=== PATIENT | female | born 1965 | race Caucasian/White ===

== ENCOUNTER → 2018-05-02 10:32 | Outpatient (CLI) | payer OTHER, SELFPAY ==
--- NOTE | 2018-05-02 10:37 | MM_ITS ---
MM Dig screening mamm BI w/CAD ORDERING PHYSICIAN : Kristy Lay PATIENT AGE: 52 years GENDER: [facility]: April 2012, March 2011 prior INDICATION: Routine SCREENING no hormones. No new complaints. Noncontributory family history. Previous needle biopsy right breast. TECHNIQUE: Standard CC and MLO images were obtained. R2 CAD reviewed. FINDINGS: Low-density breast bilaterally generalized fatty replacement no significant change since prior study. RIGHT BREAST: No new areas of concern We again see the round nodular density at the 12:00 right breast. No significant change since previous studies.. This measures 16 mm today and measured similar size and in 2013 this long-term stability supporting benign nature. LEFT BREAST: No new findings of significant concern. IMPRESSION: Stable bilateral mammogram.. Long-standing Stable nodular density right breast no significant change since 2011 Routine annual follow-up suggested BI-RADS Category: 2 Benign Finding(s) RECOMMENDED FOLLOW-UP: 1YR 1 YEAR FOLLOW-UP (A letter has been sent to the patient regarding results of the study.)
== END ==
PROVIDERS: PCP Internal Medicine Adolescent Medicine; Visit Provider Nurse Practitioner Family
DX: Z12.31 Encounter for screening mammogram for malignant neoplasm of breast (principal)
CPT/HCPCS: 77067

== ENCOUNTER → 2018-11-21 07:30 | Outpatient (CLI) | payer OTHER, SELFPAY ==
[2018-11-21 13:57] LABS: Basophils # 0.1 K/mm3 (0-0.2); Basophils % 1.2 % (0.1-2.0); Eosinophils # 0.2 K/mm3 (0.0-0.4); Eosinophils % 3.6 % (0.1-12.0); Hematocrit 42.9 % (37.0-47.0); Hemoglobin 13.5 g/dL (12.2-16.2); Lymphocytes # 1.4 K/mm3 (0.7-4.5); Lymphocytes % 26.4 % (10-50); Mean Corpuscular HGB Conc 31.4 g/dL (31.8-35.4); Mean Corpuscular Hemoglobin 26.7 pg (27.0-31.2); Mean Corpuscular Volume 84.9 fl (81-99); Monocytes # 0.4 K/mm3 (0.1-1.0); Monocytes % 7.5 % (1.7-9.3); Neutrophils # 3.3 K/mm3 (1.8-7.8); Neutrophils % 61.3 % (37.0-80.0); Platelet Count 171 K/mm3 (142-424); Red Blood Count 5.05 M/mm3 (4.20-5.40); Red Cell Distribution Width 15.2 % (11.5-17.5); White Blood Count 5.3 K/mm3 (4.8-10.8)
[2018-11-21 14:17] LABS: Alanine Aminotransferase 32 U/L (12-78); Albumin Level 3.9 gm/dL (3.4-5.0); Albumin/Globulin Ratio 1.2 (1.1-1.8); Alkaline Phosphatase 100 U/L (46-116); Aspartate Amino Transferase 16 U/L (15-37); Bilirubin,Total 0.5 mg/dL (0.2-1.0); Blood Urea Nitrogen 18 mg/dL (7-18); Calcium 9.3 mg/dL (8.5-10.1); Carbon Dioxide 28 mmol/L (21.0-32.0); Chol/HDL Ratio 6.7 (1-3.5); Cholesterol 207 mg/dL (140-200); Estimated Glomerular Filt Rate 76 ml/min (>60); GFR (African American) 92 ML/MIN (>60); Globulin 3.3 gm/dl (1.3-3.2); Glucose 101 mg/dL (74-106); HDL Cholesterol 31 mg/dL (29-89); LDL Cholesterol 100 mg/dL (0-130); Potassium 4.6 mmoL/L (3.5-5.1); Sodium 139 mmol/L (136-145); Thyroid Stimulating Hormone 2.03 uIU/ml (0.358-3.740); Total Protein,Serum 7.2 gm/dL (6.4-8.2); Triglycerides 379 mg/dL (30-200); VLDL Cholesterol 76 mg/dL (0-40)
[2018-11-21 14:31] LABS: Anion Gap 12.6 mEq/L (5-15); Chloride 103 mmol/L (98-107)
[2018-11-23 13:46] LABS: Vitamin D 25 Hydroxy 21.1 ng/mL (30.0-100.0)
== END ==
PROVIDERS: PCP Nurse Practitioner Family; Visit Provider Nurse Practitioner Family
DX: Z00.00 Encounter for general adult medical examination without abnormal findings (principal); I10 Essential (primary) hypertension; E55.9 Vitamin D deficiency, unspecified
CPT/HCPCS: 36415; 80053; 80061; 82652; 84443; 85025

== ENCOUNTER → 2018-11-27 14:12 | Outpatient (CLI) | payer OTHER, SELFPAY ==
--- NOTE | 2018-11-27 14:19 | US_ITS ---
PROCEDURE: US THYROID CLINICAL INDICATION: THYROMEGALY COMPARISON: THY US THYROID from 02/11/2014 FINDINGS: Right lobe: 1.7 x 4.8 x 2.0 centimeters. In the lower pole there is a well-defined smoothly marginated homogeneous hypoechoic nodule measuring 2.2 x 1.0 by 1.9 centimeters. There is some distal acoustic enhancement suggesting uniform cellularity of the nodule. There is no shadowing. Also in the right lobe there is a round anechoic lesion with thin internal septation with smooth gilbert and distal acoustic enhancement along the periphery of the upper portion and measures 7.9 millimeters in greatest diameter. There are some anterior echoes which could be reverberation artifact or small solid component. Left lobe: 2.3 x 5.2 x 3.2 centimetres. The solid isoechoic in [place] lower left thyroid lobe nodule underwent prior biopsy and on today's study measures 3.5 x 1.9 x 2.7 centimeters. There are some internal cystic foci suggesting some necrosis. Isthmus: Isthmus area shows 2 small nodular foci, 1 of which at the midline is probably anechoic measuring 3.3 millimeters and the other could be hypoechoic measuring 4.1 millimeters. Additional findings: The remainder of the thyroid parenchyma appears to be normal. IMPRESSION: There has been some enlargement of the solid lower pole left thyroid lobe nodule which underwent prior biopsy. Correlate with results. There is a new solid lower pole right thyroid lobe nodule as discussed above. TR category 4, moderately suspicious and considering size FNA could be considered. Dictated by: Haroldo Vicente 11/27/2018 14:51 Electronically signed by Haroldo Vicente in [place] 11/27/2018 14:51
== END ==
PROVIDERS: PCP Nurse Practitioner Family; Visit Provider Nurse Practitioner Family
DX: Z00.00 Encounter for general adult medical examination without abnormal findings (principal); E55.9 Vitamin D deficiency, unspecified
CPT/HCPCS: 76536

== ENCOUNTER → 2020-05-20 07:22 | Outpatient (CLI) | payer OTHER, SELFPAY ==
[2020-05-20 14:10] LABS: Chloride 107 mmol/L (98-107); Potassium 4.2 mmoL/L (3.5-5.1); Sodium 141 mmol/L (136-145)
[2020-05-20 14:12] LABS: Alanine Aminotransferase 24 U/L (12-78); Aspartate Amino Transferase 26 U/L (14-36); Blood Urea Nitrogen 17 mg/dl (7-17); Estimated Glomerular Filt Rate 75 ml/min (>60); GFR (African American) 91 ML/MIN (>60)
[2020-05-20 14:13] LABS: Albumin Level 4.5 g/dl (3.5-5.0); Albumin/Globulin Ratio 1.6 (1.1-1.8); Alkaline Phosphatase 100 U/L (38-126); Anion Gap 10.2 mEq/L (5-15); Bilirubin,Total 0.5 mg/dl (0.2-1.3); Calcium 9.4 mg/dl (8.4-10.2); Carbon Dioxide 28 mmol/L (22.0-30.0); Chol/HDL Ratio 6.9 (1-3.5); Cholesterol 215 mg/dl (140-200); Globulin 2.9 g/dL (1.3-3.2); Glucose 102 mg/dl (74-100); HDL Cholesterol 31 mg/dl (40-60); Total Protein,Serum 7.4 g/dl (6.3-8.2)
[2020-05-20 14:14] LABS: Triglycerides 423 mg/dl (30-150)
[2020-05-20 14:24] LABS: Direct LDL Cholesterol 86.75 mg/dL (100-129)
[2020-05-20 14:32] LABS: 25-OH Vitamin D, Total < 12.8 ng/mL (30-100)
[2020-05-20 15:02] LABS: Vitamin B12 364 pg/mL (239-931)
== END ==
PROVIDERS: Visit Provider Nurse Practitioner Family
DX: I10 Essential (primary) hypertension (principal); E55.9 Vitamin D deficiency, unspecified
CPT/HCPCS: 36415; 80053; 80061; 82306; 82607

== ENCOUNTER → 2020-10-22 11:23 | Outpatient (CLI) | payer OTHER, SELFPAY ==
--- NOTE | 2020-10-22 11:28 | XR_ITS ---
PROCEDURE: XR CERVICAL SPINE 5V CLINICAL INDICATION: CERVICALGIA COMPARISON: No exams were available for comparison FINDINGS: Normal Alignment No fracture or dislocation. No lytic or blastic change. No significant degenerative change. The disc spaces are preserved. No evidence of cervical rib. There is some soft tissue calcification noted posterior to the C5 spinous process suggesting incidental nuchal ligament calcification IMPRESSION: Negative cervical spine Dictated by: Inderjit Samuel MD 10/22/2020 13:15 Inderjit Samuel MD in [place] 10/22/2020 13:15
== END ==
PROVIDERS: PCP Internal Medicine Adolescent Medicine; Visit Provider Nurse Practitioner Family
DX: M54.2 Cervicalgia (principal)
CPT/HCPCS: 72050

== ENCOUNTER → 2020-11-03 18:12 | Outpatient (CLI) | payer OTHER, SELFPAY ==
[2020-11-03 19:04] LABS: Chloride 107 mmol/L (98-107)
[2020-11-03 19:05] LABS: Potassium 4.9 mmoL/L (3.5-5.1); Sodium 142 mmol/L (136-145)
[2020-11-03 19:07] LABS: Alanine Aminotransferase 22 U/L (12-78); Albumin/Globulin Ratio 1.3 (1.1-1.8); Alkaline Phosphatase 112 U/L (38-126); Anion Gap 13.9 mEq/L (5-15); Aspartate Amino Transferase 22 U/L (14-36); Bilirubin,Total 0.3 mg/dl (0.2-1.3); Blood Urea Nitrogen 23 mg/dl (7-17); Carbon Dioxide 26 mmol/L (22.0-30.0); Cholesterol 225 mg/dl (140-200); Estimated Glomerular Filt Rate 75 ml/min (>60); GFR (African American) 91 ML/MIN (>60); Globulin 3.1 g/dL (1.3-3.2); Total Protein,Serum 7.1 g/dl (6.3-8.2)
[2020-11-03 19:08] LABS: Calcium 9.3 mg/dl (8.4-10.2); Glucose 108 mg/dl (74-100); HDL Cholesterol 25 mg/dl (40-60)
[2020-11-03 19:30] LABS: Direct LDL Cholesterol 54.15 mg/dL (100-129)
[2020-11-03 19:32] LABS: Triglycerides 806 mg/dl (30-150)
[2020-11-03 20:34] LABS: 25-OH Vitamin D, Total 20.9 ng/mL (30-100)
== END ==
PROVIDERS: Visit Provider Nurse Practitioner Family
DX: I10 Essential (primary) hypertension (principal); E78.2 Mixed hyperlipidemia; E55.9 Vitamin D deficiency, unspecified
CPT/HCPCS: 80053; 80061; 82306

== ENCOUNTER 2023-03-09 13:20 | Outpatient (CLI) | payer OTHER, SELFPAY ==
--- NOTE | 2023-03-09 13:28 | XR_ITS ---
FINAL REPORT CLINICAL HISTORY: Right heel pain COMPARISON: None FINDINGS: RIGHT FOOT: Three views of the right foot were obtained. There is no acute fracture or dislocation. The joint spaces are intact. Small calcaneal spurs are noted. There are calcifications in the region of the distal Achilles tendon. IMPRESSION: No acute bony abnormality. Calcifications in the region of the distal Achilles tendon. Reviewed, Interpreted and Dictated by Tony Perkins III, MD Transcribed by Abby Archuleta Authenticated and [facility]
--- NOTE | 2023-03-09 13:28 | XR_ITS ---
FINAL REPORT CLINICAL HISTORY: Left heel pain COMPARISON: None FINDINGS: LEFT FOOT: Three views of the left foot were obtained. There is no acute fracture or dislocation. The joint spaces are intact. There is no soft tissue abnormality. IMPRESSION: No acute bony abnormality. Reviewed, Interpreted and Dictated by Tony Perkins III, MD Transcribed by Abby Archuleta Authenticated and [facility]
== END 2023-03-09 23:59 ==
PROVIDERS: PCP Internal Medicine Adolescent Medicine; Visit Provider Nurse Practitioner Family
DX: M79.671 Pain in right foot (principal); M79.672 Pain in left foot
CPT/HCPCS: 73630

== ENCOUNTER 2024-07-03 08:23 | Observation (INO) | payer MEDICAID, SELFPAY ==
[2024-07-03] VITALS (25 sets, daily range): BP systolic 90–144; BP diastolic 51–83; PULSE 73–128; RESP 12–26; TEMP 36.1–37.5; O2SAT 93–98; BMI 44.2
--- OUTSIDE RECORDS SUMMARY | 2024-07-03 08:32 | XMS_ITS | Continuity of Care Document ---
Author Organization [facility] Phone Care Team Providers Care Internetworking Technician Name Role Phone MAXWELL BREWER Primary Care MAXWELL BREWER Admitting MAXWELL BREWER Primary Attending MAXWELL BREWER Unavailable RESULTS Patient: MERARY AVILES Date of : 1965 LABORATORY RESULTS Information is not available LABORATORY NARRATIVE RESULTS Information is not available RADIOLOGY RESULTS ORDER 100: HIP LT 2V (LOINC: 56021-1) ORDER DATE: February 28, 2024 4:26:00 PM [facility] PERFORMING LAB: [address] [id number] Final Result Date: February 4:36:[address] [place] [address] Name: HERB REAGAN Exam Date: 02/28/2024 : 1965 Age 58 years Gender: F Physician: MAXWELL BREWER Facility: [facility] Facility HSV: Outpatient Exam: HIP LT 2V LEFT HIP: 2 Views CLINICAL INDICATION: Female, 58 years old. left side pain COMPARISON: None. Findings: There is no fracture or dislocation. Joint space is preserved. Impression: Intact hip Electronically signed by: Mellissa Ornelas MD 02/28/2024 01:36 PM [facility] Dictated By: MELLISSA ORNELAS Transcribed By: Transcribed On: 02/28/2024 11:36 AM Electronically signed by: MELLISSA ORNELAS 02/28/2024 Thank you for referring HERB REAGAN to [facility]. Legally authenticated by JOHNSON MALLOY MD 2024-02-28 11:36:56 ORDER 200: SACROILIAC JOINTS 3V (LOINC: 74704-4) ORDER DATE: February 28, 2024 4:26:00 PM [facility] PERFORMING LAB: [address] [id number] Final Result Date: February 4:37:[address] [place] [address] Name: HERB REAGAN Exam Date: 02/28/2024 : 1965 Age 58 years Gender: F Physician: MAXWELL BREWER Facility: [facility] Facility HSV: Outpatient Exam: SACROILIAC JOINTS 3V EXAMINATION: SACROILIAC JOINTS: 4 views CLINICAL INDICATION: Female, 58 years old. left side pain COMPARISON: None. Findings: There is sclerosis involving the left lower sacroiliac joint without visible osseous erosion. Impression: Sclerosis involving the left lower sacroiliac joint, which may be degenerative in nature. If there is concern for sacroiliitis, MRI may be obtained. Electronically signed by: Mellissa Ornelas MD 02/28/2024 01:35 PM [facility] Dictated By: MELLISSA ORNELAS Transcribed By: Transcribed On: 02/28/2024 11:37 AM Electronically signed by: MELLISSA ORNELAS 02/28/2024 Thank you for referring HERB REAGAN to [facility]. Legally authenticated by JOHNSON MALLOY MD 2024-02-28 11:37:06 PATHOLOGY NARRATIVE RESULTS Information is not available MICROBIOLOGY RESULTS No Micro Labs/Results Exist for Patient BLOOD ADMIN RESULTS Information is not available MEDICATIONS HOME MEDICATIONS Status RXNORM NDC Medication Dose Route Frequency Dates Comments Reported By Updated By Drug Treatment Unknown DISCHARGE MEDICATIONS Status RXNORM NDC Medication Dose Route Frequency Dates Comments Physician Updated By No Discharge Medication Info rmation Available INPATIENT MEDICATIONS Status RXNORM NDC Medication Dose Route Frequency Rat e Quantity Dates Comments Physician Updated By No Inpatient Medication Info rmation Available SOCIAL HISTORY SOCIAL HISTORY SNOMED-CT Social History Element Description Effective Dates Offered Cessation Comment UpdatedBy [id number] Smoking Status Unknown If Ever Smoked SOCIAL HISTORY - Gender Sex: Female SOCIAL HISTORY - Status : status i nformation is not available Intention in Next Year: intention information is not available SOCIAL HISTORY - Sexual Behavior Sexual Orientation Gender Identity SNOMED-CT Description SNO MED -CT Description Activity Level No of Partners Partner Type UpdatedBy Information is not available HEALTH CONCERNS Problems Concern Status Health Concern problem infor mation not available. Smoking Status Status Years Used Consumed packs p er day Health Concern smoking histo ry information not available. Family History Concern Status Health Concern family histor y information not available. ENCOUNTERS ENCOUNTER INFORMATION Reason for Visit M54.42 Admission February 28, 2024 4:19:00 PM [facility] [address] [id number] Discharge February 28, 2024 4:19:00 PM [facility] ISCHARGED TO HOME OR SELF CARE ENCOUNTER DIAGNOSES Notes information is not tadeo ilable. Code System Diagnosis Onset Date Diagnosis information is not available. ABSTRACT DIAGNOSES Code System Diagnosis Updated By M54.42 ICD10 LUMBAGO WITH SCIATICA, LEFT SIDE [id number] on March 01, 2024 9:11:50 AM [facility] M53.3 ICD10 SACROCOCCYGEAL D ISORDERS, NOT ELSEWHERE CLASSIFIED [id number] on March 01, 2024 9:11:50 AM [facility] M54.42 ICD10 LUMBAGO WITH SCIATICA, LEFT SIDE [id number] on March 01, 2024 9:11:50 AM [facility] CARE TEAM Care Internetworking Technician Role MAXWELL BREWER Primary Care MAXWELL BREWER Admitting MAXWELL BREWER Primary Attending MAXWELL BREWER Referring CARE TEAM CARE daycare assistant Role on Team Status Start Date End Date Update d By DANIELLA ARREOLA MD PCP normal February 28, 2024 5:00:00 AM [facility] February 28, 2024 4:19:00 PM [facility] [id number] on February 28, 2024 4:22:24 PM [facility] DANIELLA ARREOLA MD Referring normal February 28, 2024 5:00:00 AM [facility] February 28, 2024 4:19:00 PM [facility] [id number] on February 28, 2024 4:22:24 PM [facility] DANIELLA ARREOLA MD Attending normal February 28, 2024 5:00:00 AM [facility] February 28, 2024 4:19:00 PM [facility] [id number] on February 28, 2024 4:22:24 PM [facility] DANIELLA ARREOLA MD Admitting normal February 28, 2024 5:00:00 AM [facility] February 28, 2024 4:19:00 PM [facility] [id number] on February 28, 2024 4:22:24 PM [facility]
--- NOTE | 2024-07-03 08:36 | ECG_ITS ---
APPROVED REPORT Exam: Resting ECG HR:121 bpm ECG Measurements Heart Rate 121 AXES RI 171 P 50 QRSd 82 QRS 74 QT 306 T -9 QTc 378 Conclusion SINUS TACHYCARDIA NONSPECIFIC T-WAVE ABNORMALITY No acute STEMI Electronically signed by : ORION GOODWIN, 07/03/2024 16:22:08
[2024-07-03 08:53] LABS: Basophils % 0.2 % (0.1-2.0); Hematocrit 41.7 % (37.0-47.0); Immature Granulocytes # 0.12 10^3uL; Immature Granulocytes % 0.6 %; Lymphocytes % 5.2 % (10-50); Mean Corpuscular HGB Conc 33.6 g/dL (31.8-35.4); Mean Corpuscular Hemoglobin 28.8 pg (27.0-31.2); Mean Corpuscular Volume 85.8 fl (81-99); Mean Platelet Volume 12.1 fl (7.4-10.4); Monocytes # 1.6 K/mm3 (0.1-1.0); Monocytes % 8.3 % (1.7-9.3); Neutrophils # 16.1 K/mm3 (1.8-7.8); Neutrophils % 85.7 % (37.0-80.0); Nucleated Red Blood Cells # 0 10^3/uL; Nucleated Red Blood Cells % 0 %; Platelet Count 159 K/mm3 (142-424); Red Blood Count 4.86 M/mm3 (4.20-5.40); Red Cell Distribution Width 14.5 % (11.5-17.5); Red Cell Distribution Width-SD 45.5 fL; White Blood Count 18.8 K/mm3 (4.8-10.8)
[2024-07-03 08:56] LABS: MANUAL DIFFERENTIAL MANUAL DIFFERENTIAL (MANUAL DIFF)
[2024-07-03 09:03] LABS: Alanine Aminotransferase 25 U/L (12-78); Albumin Level 4.7 g/dl (3.5-5.0); Albumin/Globulin Ratio 1.3 (1.1-1.8); Alkaline Phosphatase 147 U/L (38-126); Anion Gap 10.8 mEq/L (5-15); Aspartate Amino Transferase 29 U/L (14-36); Bilirubin,Total 1.6 mg/dl (0.2-1.3); Blood Urea Nitrogen 12 mg/dl (7-17); Calcium 9.8 mg/dl (8.4-10.2); Carbon Dioxide 22 mmol/L (22.0-30.0); Chloride 104 mmol/L (98-107); Creatinine Clearance Estimated 68 mL/min (50-200); Estimated Glomerular Filt Rate 74 ml/min (>60); GFR (African American) 90 ML/MIN (>60); Globulin 3.5 g/dL (1.3-3.2); Glucose 128 mg/dl (74-100); Lipase 68 U/L (23-300); Potassium 3.8 mmoL/L (3.5-5.1); Sodium 133 mmol/L (136-145); Total Protein,Serum 8.2 g/dl (6.3-8.2)
[2024-07-03] MEDS: KETOROLAC 30MG/ML VIAL 15 MG IV (09:03)
[2024-07-03] MEDS: ONDANSETRON 4MG/2ML VIAL 4 MG IV (09:04)
[2024-07-03] MEDS: ACETAMINOPHEN 500MG TAB 1000 MG PO (09:04)
--- NOTE | 2024-07-03 09:07 | HMH.EDGENADL ---
Discharge Plan Disposition Patient Disposition: Admitted Condition: Fair Clinical Impressions Clinical Impression: Sepsis, Acute cholecystitis Discharge ED Provider: Sruthi Garcia General Adult HPI General Chief complaint: Abdominal Pain Stated complaint: Pain in abd. Time Seen by Provider: 07/03/24 08:28 Mode of Arrival: Wheelchair Source of Information: Patient and Relative Description of Symptoms (Recalled from ER Triage Doc. by RN): pt has been having ruq pain and cramping and gas since sunday night with no releif despite otc meds, pt is nauseated from pain and it radiates into right shoulder History of Present Illness HPI narrative: This patient is a 58-year-old female with a history of obesity, hyperlipidemia, hypertension, diabetes presenting to the emergency department for evaluation with concern for generalized abdominal pain that initially started in her right upper quadrant, radiating to her right shoulder. She states that she is also constipated, having difficulty having bowel movements. She states she has cramping and gas and feels like needs to have a bowel movement but is unable to. She also notes nausea with inability to eat or drink, but no vomiting. No fevers, cough, congestion, chest pain, or shortness of breath. She notes that this started Sunday night after eating and has been waxing and waning since then, but she is not been able to eat or drink anything since yesterday. She saw her primary care provider on Sunday was told she might have diverticulitis, but she is not getting better despite [id number] medications and symptomatic management at home. No prior surgical abdominal history. No urinary symptoms. Related Data Home Medications ?Medication ?Instructions ?Recorded ?Confirmed aspirin 81 mg tablet,delayed 81 mg PO DAILY 03/09/23 07/03/24 release (Adult Low Dose Aspirin) atorvastatin 40 mg tablet 40 mg PO DAILY 03/09/23 07/03/24 cholecalciferol (vitamin D3) 25 25 mcg PO DAILY 03/09/23 07/03/24 mcg (1,000 unit) capsule diclofenac sodium 75 mg 75 mg PO BID 03/09/23 07/03/24 tablet,delayed release hydrocodone 7.5 mg-acetaminophen 1 tab PO NEEDED PRN pain 03/09/23 07/03/24 300 mg tablet metoprolol tartrate 25 mg tablet 25 mg PO BID 03/09/23 07/03/24 ubidecarenone-omega 3-vit E 25 1 cap PO DAILY 03/09/23 07/03/24 mg-150 (90-60) mg-200 unit capsule (Co [id number] E-Fish Oil) albuterol sulfate 90 mcg/actuation 2 puff inhalation Q6H PRN 07/03/24 07/03/24 aerosol inhaler (Ventolin HFA) Shortness Of Breath Or Wheezing esomeprazole magnesium 40 mg 40 mg PO DAILY 07/03/24 07/03/24 capsule,delayed release Allergies Allergy/AdvReac Type Severity Reaction Status Date / Time No Known Allergies Allergy Verified 07/03/24 15:16 [facility] Disclaimer: The information contained in this section may have been updated after the patient was seen, as this information can be updated by other users. Medical History (Updated 07/03/24 @ 15:15 by Cass Navarro RN) Sleep apnea Asthma History of gastroesophageal reflux (GERD) Hyperlipidemia Hypertension Surgical History (Updated 07/03/24 @ 15:15 by Cass Navarro RN) History of left knee surgery History of hysterectomy Family History (Updated 07/03/24 @ 15:15 by Cass Navarro RN) Mother Family history of hypertension Mother Family history of TIAs Social History (Updated 07/03/24 @ 15:15 by Cass Navarro RN) Smoking Status: Never smoker alcohol intake: never current occupational status: employed Travel in the last 8 weeks?: None Have you lived/traveled outside [place] in past 30 days?: No Contact w/someone who lives/traveled outside [place] past 30 days?: No Exposure to someone with infectious disease in past 14 days?: No Do you have a fever (greater than 100.4 F or 38 C)?: No Have you tested positive for COVID-19?: No Exposed to someone with COVID-19 in past 14 days?: No Do you have a sore throat?: No Do you have a cough?: No Do you have any weakness?: No Do you have any diarrhea?: No Are you experiencing any unusual bleeding?: No Do you have any muscle aches/pain?: No Do you have any abdominal pain?: Yes Are you experiencing loss of taste or smell?: No ROS Obtained: Yes All systems reviewed & no additional complaints except as documented Physical Exam General General appearance: alert, in no apparent distress and obese Head Head exam: atraumatic and normocephalic Eye Eye exam: Present normal appearance, PERRL and EOMI ENT ENT exam: Present normal exam, normal oropharynx, mucous membranes moist and normal external ear exam Neck Neck exam: Present normal inspection, full ROM and trachea midline; Absent tenderness Chest Chest inspection: Present normal inspection and symmetric chest wall rise; Absent tenderness Respiratory Respiratory exam: Present normal lung sounds bilaterally; Absent respiratory distress, wheezes, stridor or accessory muscle use Cardiovascular Cardiovascular exam: Present normal rhythm and tachycardia Abdominal Exam Abdominal exam: Present soft, distention and tenderness (Generalized); Absent guarding, rebound or rigidity Extremities Exam Extremities exam: Present normal inspection, full ROM and normal capillary refill; Absent tenderness or edema Back Exam Back exam: Present normal inspection and full ROM; Absent tenderness Neurological Exam Neurological exam: Present alert, oriented X3, CN II-XII intact and normal gait; Absent motor sensory deficit Psychiatric Psychiatric exam: Present normal affect and normal mood Skin Skin exam: Present warm and dry Medical Decision Making Medical Records Medical records reviewed: Yes I reviewed the patient's medical records. Screening: Per USPSTF and CDC recommendations, given the prevalence of disease in our region, it is our hospital?s policy to screen for HIV and viral Hepatitis for all patients aged 18 and over and those with ongoing risk factors. Boni Inquiry Pt receiving controlled substance: No Vital Signs: 07/03/24 08:38 07/03/24 08:49 07/03/24 09:00 Temperature 98.9 F Temperature Source Oral Pulse Rate 128 H Pulse Rate [Left Radial] 126 H Respiratory Rate 12 20 18 Blood Pressure 142/83 H 144/64 H Blood Pressure [Right Arm] 142/83 H Blood Pressure Mean [Right Arm] 102 02 Sat by Pulse Oximetry 98 97 Oxygen Delivery Method Room Air 07/03/24 10:00 07/03/24 10:30 07/03/24 11:00 Temperature Temperature Source Pulse Rate 117 H 112 H 111 H Pulse Rate [Left Radial] Respiratory Rate 20 16 26 H Blood Pressure 130/77 107/61 L Blood Pressure [Right Arm] Blood Pressure Mean [Right Arm] 02 Sat by Pulse Oximetry 95 95 95 Oxygen Delivery Method 07/03/24 11:30 07/03/24 12:00 07/03/24 12:11 Temperature 98.2 F Temperature Source Pulse Rate 101 H 100 H 98 H Pulse Rate [Left Radial] Respiratory Rate 23 22 18 Blood Pressure 105/60 L 101/58 L 101/58 L Blood Pressure [Right Arm] Blood Pressure Mean [Right Arm] 02 Sat by Pulse Oximetry 96 97 Oxygen Delivery Method Room Air Lab Data Lab results reviewed: Yes I reviewed the patient's lab results. Lab Results 07/03/24 08:45: WBC 18.8 H, RBC 4.86, Hgb 14.0, Hct 41.7, MCV 85.8, MCH 28.8, MCHC 33.6, RDW 14.5, Plt Count 159, MPV 12.1 H, Neut % (Auto) 85.7 H, Lymph % (Auto) 5.2 L, Coal % (Auto) 8.3, Eos % (Auto) 0.0 L, Baso % (Auto) 0.2, Neut # (Auto) 16.1 H, Lymph # (Auto) 1.0, Coal # (Auto) 1.6 H, Eos # (Auto) 0.0, Baso # (Auto) 0.0, Total Counted 100, Neutrophils % (Manual) 87 H, Lymphocytes % (Manual) 12, Monocytes % (Manual) 1 L, Platelet Estimate Normal, RBC Morphology Normal, D-Dimer 1.09 H, Sodium 133 L, Potassium 3.8, Chloride 104, Carbon Dioxide 22, Anion Gap 10.8, BUN 12, Creatinine 0.80, Estimated Creat Clear 68, Estimated GFR 74, Est GFR ( Amer) 90, Glucose 128 H, Lactate 1.6, Calcium 9.8, Total Bilirubin 1.6 H, AST 29, ALT 25, Alkaline Phosphatase 147 H, Troponin I < 0.01, Total Protein 8.2, Albumin 4.7, Globulin 3.5 H, Albumin/Globulin Ratio 1.3, Lipase 68 07/03/24 10:53: Urine Color Yellow, Urine Appearance Sl cloudy, Urine pH 6.0, Ur Specific [place] 1.020, Urine Protein 2+ A, Urine Glucose (UA) 2+, Urine Ketones 1+, Urine Blood 1+ A, Urine Nitrate Positive A, Urine Bilirubin Negative, Urine Urobilinogen 2.0, Ur Leukocyte Esterase Negative, Urine RBC None, Urine WBC 5-10, Ur Squamous Epith Cells 3-5, Urine Bacteria 3+ 07/03/24 08:45 07/03/24 08:45 Orders (Tests/Meds): ED MEDICATIONS Generic Name Dose Route Start Last Admin Trade Name Freq PRN Reason Stop Dose Admin Acetaminophen 650 mg 07/03/24 15:23 Acetaminophen 325mg Tab PO 08/02/24 15:22 Q4HP PRN Fever or Mild Pain (1-3) Enoxaparin Sodium 40 mg 07/04/24 09:00 Enoxaparin 40mg/0.4ml Syringe SUBCUT 08/03/24 08:59 DAILY IMELDA Lactated Ringer's 1,000 mls @ 100 mls/hr 07/03/24 15:30 Lactated Ringer's 1000 Ml Bag IV 08/02/24 15:29 .Q10H IMELDA Ondansetron HCl 4 mg 07/03/24 15:23 Ondansetron 4mg/2ml Vial IV 08/02/24 15:22 Q8HP PRN Nausea Sodium Chloride 10 ml 07/03/24 15:23 Sodium Chloride 0.9% 10ml Flush Syringe IV 08/02/24 15:22 NEEDED PRN Maintain IV Site Discontinued Medications Generic Name Dose Route Start Last Admin Trade Name Freq PRN Reason Stop Dose Admin Acetaminophen 1,000 mg 07/03/24 08:43 07/03/24 09:04 Acetaminophen 500mg Tab PO 07/03/24 08:44 1,000 mg ONCE ONE Administration Lactated Ringer's 1,640 mls @ 820 mls/hr 07/03/24 08:59 07/03/24 09:08 Lactated Ringer's 1000 Ml Bag 30 ml/kg infuse over 2 hr (1640 ml) 07/03/24 10:58 820 mls/hr IV Administration .Q2H ONE Piperacillin Sod/Tazobactam 50 mls @ 100 mls/hr 07/03/24 10:01 07/03/24 10:17 Sod 3.375 gm/ Sodium Chloride IV 07/03/24 10:30 100 mls/hr ONCE ONE Administration Iopamidol 80 ml 07/03/24 09:40 07/03/24 09:42 Iopamidol-370 (76%);100ml Bottle IV 07/03/24 09:41 80 ml ONCE ONE Administration Ketorolac Tromethamine 15 mg 07/03/24 08:43 07/03/24 09:03 Ketorolac 30mg/Ml Vial IV 07/03/24 08:44 15 mg ONCE ONE Administration Ondansetron HCl 4 mg 07/03/24 08:43 07/03/24 09:04 Ondansetron 4mg/2ml Vial IV 07/03/24 08:44 4 mg ONCE ONE Administration Sodium Chloride 10 ml 07/03/24 09:40 07/03/24 09:42 Sodium Chloride 0.9% 10ml Syr (Rad Only) IV 07/03/24 09:41 10 ml ONCE ONE Administration ORDERS Category Date Time Status CT abdomen pelvis w con Stat Cat Scan 07/03/24 09:18 Completed CTA Chest [CT angio chest PE protocol] Stat Cat Scan 07/03/24 09:18 Completed Consult to General Surgery [CONS] Stat Cons 07/03/24 10:03 Ordered Complete Blood Count Auto Diff Stat Lab 07/03/24 08:45 Completed Comprehensive Metabolic Panel Stat Lab 07/03/24 08:45 Completed D-Dimer Stat Lab 07/03/24 08:45 Completed Lactic Acid Stat Lab 07/03/24 08:45 Completed Lipase Stat Lab 07/03/24 08:45 Completed Trop I [Troponin I] Stat Lab 07/03/24 08:45 Completed UA [Urinalysis and Microscopic] Stat Lab 07/03/24 10:53 Completed Blood Culture Stat Micro 07/03/24 09:33 Received Urine Culture Stat Micro 07/03/24 10:58 Received ECG Data Tracing #1: I reviewed this ECG and interpreted as documented below: Sinus tachycardia with a ventricular to [address] changes concerning for STEMI. Normal intervals ECG initial impression date: 07/03/24 ECG initial impression time: 08:38 Medical Decision Narrative: In summary, this patient is a 58-year-old female presenting to the Emergency Department for evaluation of generalized abdominal pain that initiated in the right upper quadrant, radiating to her shoulder. She also has constipation and nausea. Differential diagnoses considered include but are not limited to constipation, bowel obstruction, fecal impaction, cholecystitis, cholangitis, sepsis, pyelonephritis, ureterolithiasis, pneumonia, PE, ACS. Ruling out the most morbid conditions drove assessment. It should be noted patient's history includes obesity, hypertension, hyperlipidemia, diabetes which may or may not be at goal therapy. This complicates all aspects of care by increasing patient's risk for morbidity. On exam, the patient is sitting upright in no acute distress. She is tachycardic but otherwise vitals are reassuring. Abdominal exam demonstrates generalized tenderness with no rebound, guarding, rigidity. Cardiopulmonary exam is reassuring. Given that she has essentially upper abdominal/lower chest pain with tachycardia, cannot exclude PE as a diagnosis that I feel is unlikely. Given this, D-dimer was ordered. Workup included CBC, CMP, lipase, D-dimer, lactic acid, troponin, EKG. D-dimer was found to be elevated. CBC demonstrated leukocytosis with neutrophilic predominance. She also has mild hyponatremia, mild hyperbilirubinemia. Otherwise, liver enzymes and lipase are reassuring. Given her elevated dimer and upper abdominal pain radiating to shoulder as well as generalized abdominal pain and tenderness, CTA PE protocol and CT abdomen pelvis with IV contrast were ordered. Patient was given sepsis bolus of IV fluids as well as IV Toradol, acetaminophen, Zofran for symptomatic improvement. I independently interpreted CT scans prior to the radiologist read and noted no blood clot in the lung, however she does have acute cholecystitis. Please see their read for final interpretation. Labs were obtained that demonstrated leukocytosis in the setting of cholecystitis. Bilirubin is very mildly elevated but liver enzymes and lipase are reassuring. On reassessment, patient had good improvement after administration of interventions above, though she is still tachycardic. Tissue perfusion is improved after sepsis bolus. I had an indirect discussion with general surgery who agrees to see the patient for evaluation. I had interactive discussion with the hospitalist who admitted the patient in stable condition. Critical Care Critical Care Time Critical Care Time: Yes Attestation: On 07/03/24, the high probability of a clinically significant, sudden or life threatening deterioration of the following system(s) required my full and direct attention, intervention and personal management. The time I documented below is in addition to time spent performing reported procedures but includes the following listed in this critical care notation. Total Time Total Critical Care Time: 35
[2024-07-03 09:08] LABS: D-Dimer 1.09 ug/mL (0.0-0.5)
[2024-07-03] MEDS: LACTATED RINGERS 1000ML 1,640 ML 820 ML IV (09:08)
[2024-07-03 09:10] LABS: Lactic Acid 1.6 mmol/L (0.7-2.1)
[2024-07-03 09:17] LABS: Troponin I < 0.01 ng/ml (0.00-0.034)
--- NOTE | 2024-07-03 09:18 | CT_ITS ---
FINAL REPORT TECHNIQUE: Thin section axial images were obtained through the abdomen after intravenous contrast. Reconstruction images were obtained from the axial data. Exam was performed using dose reduction techniques. CLINICAL HISTORY: gen abd pain, sepsis, RUQ pain worse FINDINGS: The liver is homogeneous. This the gallbladder is distended with gallstones. There is gallbladder wall thickening and pericholecystic inflammation consistent with acute cholecystitis. The spleen, adrenal glands, and pancreas are unremarkable. There is a nonobstructing left renal stone. Abdominal GI tract is without acute abnormality. There is no evidence of abdominal lymphadenopathy. There is trace free fluid in the abdomen. The uterus is absent. The pelvic portions of the GI tract, including the appendix, are without acute abnormality. There is no pelvic lymphadenopathy or ascites. No acute osseous abnormalities identified. IMPRESSION: Acute cholecystitis. Reviewed, Interpreted and Dictated by Ale Jones MD Transcribed by Dory Ruiz Authenticated and [facility]
--- NOTE | 2024-07-03 09:18 | CT_ITS ---
FINAL REPORT TECHNIQUE: Axial imaging of the chest is obtained after the administration of contrast. 3-D MIP reformatted images were also obtained and reviewed per PE protocol. CLINICAL HISTORY: upper abd pain rad to shoulder, elevated dimer FINDINGS: The pulmonary arteries are well filled. There is no evidence of pulmonary embolus. There is no aortic dissection. Heart size is normal. The thyroid gland is enlarged and heterogeneous consistent with goiter. There is no mediastinal, hilar, or axillary lymphadenopathy. There are bilateral lower lobe groundglass and airspace opacities, could be related to atelectasis but mild edema is not excluded. There is no pleural or pericardial effusion. No acute osseous abnormality. IMPRESSION: No evidence of pulmonary embolism or aortic dissection. Bilateral lower lobe atelectasis versus pulmonary edema. Reviewed, Interpreted and Dictated by Ale Jones MD Transcribed by Dory Ruiz Authenticated and . [facility]
[2024-07-03] MEDS: IOPAMIDOL-370 (76%);100ML BOTTLE 80 ML IV (09:42)
[2024-07-03] MEDS: SODIUM CHLORIDE 0.9% 10ML SYR (RAD ONLY) 10 ML IV (09:42)
[2024-07-03 09:58] LABS: Lymphocytes % 12 % (10-50); Monocytes % 1 % (2-9); Neutrophils % 87 % (42-76); Total Cells Counted 100
[2024-07-03 09:59] LABS: Platelet Estimate Normal; RBC Morphology Normal
[2024-07-03] MEDS: PIPERACILLIN/TAZO 3.375 GM in 0.9 % SODIUM CHLORIDE 50 ML IV (10:17)
--- NOTE | 2024-07-03 10:31 | PC.NURSE ---
paged General surgery at 10:03.
--- NOTE | 2024-07-03 10:48 | PC.NURSE ---
Rounded on patient, no needs voiced at this time.
--- NOTE | 2024-07-03 10:50 | PC.NURSE ---
paging General surgery again at this time.
[2024-07-03 11:00] LABS: Microscopic, Urine URINE MICROSCOPIC (MICROSCOPIC)
[2024-07-03 11:02] LABS: Appearance,Urine SL CLOUDY (Clear); Bilirubin,Urine Negative (Negative); Blood, Urine 1+ (Negative); Color,Urine YELLOW (Yellow); Glucose,Urine (UA) 2+ (Negative); Ketones,Urine 1+ (Negative); Leukocyte Esterase,Urine Negative (Negative); Nitrate,Urine POSITIVE (Negative); Protein,Urine 2+ (Negative)
[2024-07-03 11:11] LABS: Bacteria,Urine 3+ /lpf
--- NOTE | 2024-07-03 11:45 | PC.NURSE ---
spoke with hpuse sup for bed assign
--- NOTE | 2024-07-03 13:07 | HMH.PHAINT1 ---
Pharmacy Intervention Comments: HOME MEDICATION LIST VERIFIED USING LIST FROM OUTPATIENT PHARMACY AND PT INTERVIEW
--- NOTE | 2024-07-03 13:13 | EXP.SURG.CON ---
History of Present Illness *Admission Date: 07/03/24 *Reason for visit:: Acute calculus cholecystitis *History of present illness: Is a 58-year-old female seen in consultation after evaluation in the emergency department for increasing right upper quadrant abdominal pain. Evaluation included CT scan showing changes consistent with acute calculus cholecystitis. The patient's white blood cell count was 18.8. Heart rate 115. Alk phos was somewhat elevated at 147 and bilirubin was mildly elevated at 1.6. She continues to have significant right upper quadrant pain and nausea. She states that she has not eaten since yesterday afternoon . She states that all of her symptoms started 3 to 4 days ago . Forwarded from emergency department evaluation: This patient is a 58-year-old female with a history of obesity, hyperlipidemia, hypertension, diabetes presenting to the emergency department for evaluation with concern for generalized abdominal pain that initially started in her right upper quadrant, radiating to her right shoulder. She states that she is also constipated, having difficulty having bowel movements. She states she has cramping and gas and feels like needs to have a bowel movement but is unable to. She also notes nausea with inability to eat or drink, but no vomiting. No fevers, cough, congestion, chest pain, or shortness of breath. She notes that this started Sunday night after eating and has been waxing and waning since then, but she is not been able to eat or drink anything since yesterday. She saw her primary care provider on Sunday was told she might have diverticulitis, but she is not getting better despite [id number] medications and symptomatic management at home. No prior surgical abdominal history. No urinary symptoms. Medical Decision Narrative: In summary, this patient is a 58-year-old female presenting to the Emergency Department for evaluation of generalized abdominal pain that initiated in the right upper quadrant, radiating to her shoulder. She also has constipation and nausea. Differential diagnoses considered include but are not limited to constipation, bowel obstruction, fecal impaction, cholecystitis, cholangitis, sepsis, pyelonephritis, ureterolithiasis, pneumonia, PE, ACS. Ruling out the most morbid conditions drove assessment. It should be noted patient's history includes obesity, hypertension, hyperlipidemia, diabetes which may or may not be at goal therapy. This complicates all aspects of care by increasing patient's risk for morbidity. On exam, the patient is sitting upright in no acute distress. She is tachycardic but otherwise vitals are reassuring. Abdominal exam demonstrates generalized tenderness with no rebound, guarding, rigidity. Cardiopulmonary exam is reassuring. Given that she has essentially upper abdominal/lower chest pain with tachycardia, cannot exclude PE as a diagnosis that I feel is unlikely. Given this, D-dimer was ordered. Workup included CBC, CMP, lipase, D-dimer, lactic acid, troponin, EKG. D-dimer was found to be elevated. CBC demonstrated leukocytosis with neutrophilic predominance. She also has mild hyponatremia, mild hyperbilirubinemia. Otherwise, liver enzymes and lipase are reassuring. Given her elevated dimer and upper abdominal pain radiating to shoulder as well as generalized abdominal pain and tenderness, CTA PE protocol and CT abdomen pelvis with IV contrast were ordered. Patient was given sepsis bolus of IV fluids as well as IV Toradol, acetaminophen, Zofran for symptomatic improvement. I independently interpreted [] prior to the radiologist read and noted []. Please see their read for final interpretation. Labs were obtained that demonstrated []. [facility] Disclaimer: The information contained in this section may have been updated after the patient was seen, as this information can be updated by other users. Social History (Updated 03/09/23 @ 14:23 by ZORA Salvador) Smoking Status: Never smoker alcohol intake: never current occupational status: employed Travel in the last 8 weeks?: None Have you lived/traveled outside US in past 30 days?: No Contact w/someone who lives/traveled outside US past 30 days?: No Exposure to someone with infectious disease in past 14 days?: No Do you have a fever (greater than 100.4 F or 38 C)?: No Have you tested positive for COVID-19?: No Exposed to someone with COVID-19 in past 14 days?: No Do you have a sore throat?: No Do you have a cough?: No Do you have any weakness?: No Do you have any diarrhea?: No Are you experiencing any unusual bleeding?: No Do you have any muscle aches/pain?: No Do you have any abdominal pain?: Yes Are you experiencing loss of taste or smell?: No Review of Systems Review of Systems Review of systems:: pertinent systems reviewed and negative unless documented below *Gastrointestinal Gastrointestinal: Reports as per [facility] Meds Home Medications and Allergies Home Medications ?Medication ?Instructions ?Recorded ?Confirmed ?Type aspirin 81 mg tablet,delayed 81 mg PO DAILY 03/09/23 07/03/24 History release (Adult Low Dose Aspirin) atorvastatin 40 mg tablet 40 mg PO DAILY 03/09/23 07/03/24 History cholecalciferol (vitamin D3) 25 25 mcg PO DAILY 03/09/23 07/03/24 History mcg (1,000 unit) capsule diclofenac sodium 75 mg 75 mg PO BID 03/09/23 07/03/24 History tablet,delayed release hydrocodone 7.5 mg-acetaminophen 1 tab PO NEEDED PRN pain 03/09/23 07/03/24 History 300 mg tablet metoprolol tartrate 25 mg tablet 25 mg PO BID 03/09/23 07/03/24 History ubidecarenone-omega 3-vit E 25 1 cap PO DAILY 03/09/23 07/03/24 History mg-150 (90-60) mg-200 unit capsule (Co [id number] E-Fish Oil) albuterol sulfate 90 mcg/actuation 2 puff inhalation Q6H PRN 07/03/24 07/03/24 History aerosol inhaler (Ventolin HFA) Shortness Of Breath Or Wheezing esomeprazole magnesium 40 mg 40 mg PO DAILY 07/03/24 07/03/24 History capsule,delayed release New Prescriptions to Start Prescriptions: Allergies Allergy/AdvReac Type Severity Reaction Status Date / Time No Known Allergies Allergy Verified 03/09/23 14:15 Exam (Inpt) Vital signs and Labs for Last 24 Hours: Temp Pulse Resp BP Pulse Ox O2 Del Method 98.2 F 115 H 17 121/78 96 Room Air 07/03/24 12:11 07/03/24 12:40 07/03/24 12:40 07/03/24 12:40 07/03/24 12:40 07/03/24 12:40 Laboratory Results - last 24 hr 07/03/24 08:45: WBC 18.8 H, RBC 4.86, Hgb 14.0, Hct 41.7, MCV 85.8, MCH 28.8, MCHC 33.6, RDW 14.5, Plt Count 159, MPV 12.1 H, Neut % (Auto) 85.7 H, Lymph % (Auto) 5.2 L, [place] % (Auto) 8.3, Eos % (Auto) 0.0 L, Baso % (Auto) 0.2, Neut # (Auto) 16.1 H, Lymph # (Auto) 1.0, [place] # (Auto) 1.6 H, Eos # (Auto) 0.0, Baso # (Auto) 0.0, Total Counted 100, Neutrophils % (Manual) 87 H, Lymphocytes % (Manual) 12, Monocytes % (Manual) 1 L, Platelet Estimate Normal, RBC Morphology Normal, D-Dimer 1.09 H, Sodium 133 L, Potassium 3.8, Chloride 104, Carbon Dioxide 22, Anion Gap 10.8, BUN 12, Creatinine 0.80, Estimated Creat Clear 68, Estimated GFR 74, Est GFR ( Amer) 90, Glucose 128 H, Lactate 1.6, Calcium 9.8, Total Bilirubin 1.6 H, AST 29, ALT 25, Alkaline Phosphatase 147 H, Troponin I < 0.01, Total Protein 8.2, Albumin 4.7, Globulin 3.5 H, Albumin/Globulin Ratio 1.3, Lipase 68 07/03/24 10:53: Urine Color Yellow, Urine Appearance Sl cloudy, Urine pH 6.0, Ur Specific [place] 1.020, Urine Protein 2+ A, Urine Glucose (UA) 2+, Urine Ketones 1+, Urine Blood 1+ A, Urine Nitrate Positive A, Urine Bilirubin Negative, Urine Urobilinogen 2.0, Ur Leukocyte Esterase Negative, Urine RBC None, Urine WBC 5-10, Ur Squamous Epith Cells 3-5, Urine Bacteria 3+ I & O for Labs for Last 24 Hours: Intake & Output 07/01/24 07/02/24 07/03/24 07/04/24 11:59 11:59 11:59 11:59 Weight 258 lb Constitutional: no acute distress Neck: Present full ROM Respiratory: Absent respiratory distress Cardiac: Present Tachycardia GI: Present tenderness Results Labs 07/03/24 08:45 07/03/24 08:45 Labs: Laboratory Results - last 24 hr 07/03/24 08:45: WBC 18.8 H, RBC 4.86, Hgb 14.0, Hct 41.7, MCV 85.8, MCH 28.8, MCHC 33.6, RDW 14.5, Plt Count 159, MPV 12.1 H, Neut % (Auto) 85.7 H, Lymph % (Auto) 5.2 L, [place] % (Auto) 8.3, Eos % (Auto) 0.0 L, Baso % (Auto) 0.2, Neut # (Auto) 16.1 H, Lymph # (Auto) 1.0, [place] # (Auto) 1.6 H, Eos # (Auto) 0.0, Baso # (Auto) 0.0, Total Counted 100, Neutrophils % (Manual) 87 H, Lymphocytes % (Manual) 12, Monocytes % (Manual) 1 L, Platelet Estimate Normal, RBC Morphology Normal, D-Dimer 1.09 H, Sodium 133 L, Potassium 3.8, Chloride 104, Carbon Dioxide 22, Anion Gap 10.8, BUN 12, Creatinine 0.80, Estimated Creat Clear 68, Estimated GFR 74, Est GFR ( Amer) 90, Glucose 128 H, Lactate 1.6, Calcium 9.8, Total Bilirubin 1.6 H, AST 29, ALT 25, Alkaline Phosphatase 147 H, Troponin I < 0.01, Total Protein 8.2, Albumin 4.7, Globulin 3.5 H, Albumin/Globulin Ratio 1.3, Lipase 68 07/03/24 10:53: Urine Color Yellow, Urine Appearance Sl cloudy, Urine pH 6.0, Ur Specific [place] 1.020, Urine Protein 2+ A, Urine Glucose (UA) 2+, Urine Ketones 1+, Urine Blood 1+ A, Urine Nitrate Positive A, Urine Bilirubin Negative, Urine Urobilinogen 2.0, Ur Leukocyte Esterase Negative, Urine RBC None, Urine WBC 5-10, Ur Squamous Epith Cells 3-5, Urine Bacteria 3+ Imaging CT scan - abdomen: report reviewed and image reviewed CT scan - pelvis: report reviewed and image reviewed Assessment and Plan *Assessment and plan (1) Acute cholecystitis due to biliary calculus: Status: Acute Category: Medical Code(s): K80.00 - Calculus of gallbladder with acute cholecystitis without obstruction Plan: Continue overall management/antibiotics as per primary service Laparoscopic cholecystectomy later today I have discussed the risks and benefits including, but not limited to: Bleeding Infection Damage to surrounding tissue Inherent risks of sedation The patient agrees to proceed.
--- NOTE | 2024-07-03 15:23 | EXP.HP ---
History of Present Illness *Admission Date: 07/03/24 *History of present illness: Is a 58-year-old female seen in consultation after evaluation in the emergency department for increasing right upper quadrant abdominal pain. Evaluation included CT scan showing changes consistent with acute calculus cholecystitis. The patient's white blood cell count was 18.8. Heart rate 115. Alk phos was somewhat elevated at 147 and bilirubin was mildly elevated at 1.6. She continues to have significant right upper quadrant pain and nausea. She states that she has not eaten since yesterday afternoon . She states that all of her symptoms started 3 to 4 days ago . Forwarded from emergency department evaluation: This patient is a 58-year-old female with a history of obesity, hyperlipidemia, hypertension, diabetes presenting to the emergency department for evaluation with concern for generalized abdominal pain that initially started in her right upper quadrant, radiating to her right shoulder. She states that she is also constipated, having difficulty having bowel movements. She states she has cramping and gas and feels like needs to have a bowel movement but is unable to. She also notes nausea with inability to eat or drink, but no vomiting. No fevers, cough, congestion, chest pain, or shortness of breath. She notes that this started Sunday night after eating and has been waxing and waning since then, but she is not been able to eat or drink anything since yesterday. She saw her primary care provider on Sunday was told she might have diverticulitis, but she is not getting better despite [id number] medications and symptomatic management at home. No prior surgical abdominal history. No urinary symptoms. Medical Decision Narrative: In summary, this patient is a 58-year-old female presenting to the Emergency Department for evaluation of generalized abdominal pain that initiated in the right upper quadrant, radiating to her shoulder. She also has constipation and nausea. Differential diagnoses considered include but are not limited to constipation, bowel obstruction, fecal impaction, cholecystitis, cholangitis, sepsis, pyelonephritis, ureterolithiasis, pneumonia, PE, ACS. Ruling out the most morbid conditions drove assessment. It should be noted patient's history includes obesity, hypertension, hyperlipidemia, diabetes which may or may not be at goal therapy. This complicates all aspects of care by increasing patient's risk for morbidity. On exam, the patient is sitting upright in no acute distress. She is tachycardic but otherwise vitals are reassuring. Abdominal exam demonstrates generalized tenderness with no rebound, guarding, rigidity. Cardiopulmonary exam is reassuring. Given that she has essentially upper abdominal/lower chest pain with tachycardia, cannot exclude PE as a diagnosis that I feel is unlikely. Given this, D-dimer was ordered. Workup included CBC, CMP, lipase, D-dimer, lactic acid, troponin, EKG. D-dimer was found to be elevated. CBC demonstrated leukocytosis with neutrophilic predominance. She also has mild hyponatremia, mild hyperbilirubinemia. Otherwise, liver enzymes and lipase are reassuring. Given her elevated dimer and upper abdominal pain radiating to shoulder as well as generalized abdominal pain and tenderness, CTA PE protocol and CT abdomen pelvis with IV contrast were ordered. Patient was given sepsis bolus of IV fluids as well as IV Toradol, acetaminophen, Zofran for symptomatic improvement. I independently interpreted [] prior to the radiologist read and noted []. Please see their read for final interpretation. Labs were obtained that demonstrated []. PFSH PFSH Disclaimer: The information contained in this section may have been updated after the patient was seen, as this information can be updated by other users. Medical History (Updated 07/03/24 @ 15:15 by Cass Navarro RN) Sleep apnea Asthma History of gastroesophageal reflux (GERD) Hyperlipidemia Hypertension Surgical History (Updated 07/03/24 @ 15:15 by Cass Navarro RN) History of left knee surgery History of hysterectomy Family History (Updated 07/03/24 @ 15:15 by Cass Navarro RN) Mother Family history of hypertension Mother Family history of TIAs Social History (Updated 07/03/24 @ 15:15 by Cass Navarro RN) Smoking Status: Never smoker alcohol intake: never current occupational status: employed Travel in the last 8 weeks?: None Have you lived/traveled outside US in past 30 days?: No Contact w/someone who lives/traveled outside US past 30 days?: No Exposure to someone with infectious disease in past 14 days?: No Do you have a fever (greater than 100.4 F or 38 C)?: No Have you tested positive for COVID-19?: No Exposed to someone with COVID-19 in past 14 days?: No Do you have a sore throat?: No Do you have a cough?: No Do you have any weakness?: No Do you have any diarrhea?: No Are you experiencing any unusual bleeding?: No Do you have any muscle aches/pain?: No Do you have any abdominal pain?: Yes Are you experiencing loss of taste or smell?: No Other Medical History Have you received the Flu Vaccine for this season: No Have you received the Pneumonia Vaccine: No Meds Home Medications and Allergies Home Medications ?Medication ?Instructions ?Recorded ?Confirmed ?Type aspirin 81 mg tablet,delayed 81 mg PO DAILY 03/09/23 07/03/24 History release (Adult Low Dose Aspirin) atorvastatin 40 mg tablet 40 mg PO DAILY 03/09/23 07/03/24 History cholecalciferol (vitamin D3) 25 25 mcg PO DAILY 03/09/23 07/03/24 History mcg (1,000 unit) capsule diclofenac sodium 75 mg 75 mg PO BID 03/09/23 07/03/24 History tablet,delayed release hydrocodone 7.5 mg-acetaminophen 1 tab PO NEEDED PRN pain 03/09/23 07/03/24 History 300 mg tablet metoprolol tartrate 25 mg tablet 25 mg PO BID 03/09/23 07/03/24 History ubidecarenone-omega 3-vit E 25 1 cap PO DAILY 03/09/23 07/03/24 History mg-150 (90-60) mg-200 unit capsule (Co S-52-Kvvcudh E-Fish Oil) albuterol sulfate 90 mcg/actuation 2 puff inhalation Q6H PRN 07/03/24 07/03/24 History aerosol inhaler (Ventolin HFA) Shortness Of Breath Or Wheezing esomeprazole magnesium 40 mg 40 mg PO DAILY 07/03/24 07/03/24 History capsule,delayed release New Prescriptions to Start Prescriptions: Allergies Allergy/AdvReac Type Severity Reaction Status Date / Time No Known Allergies Allergy Verified 07/03/24 15:16 Exam Data for Last 24 hours Vital signs and Labs for Last 24 Hours: Temp Pulse Resp BP Pulse Ox O2 Del Method 98.2 F 115 H 17 121/78 96 Room Air 07/03/24 12:11 07/03/24 12:40 07/03/24 12:40 07/03/24 12:40 07/03/24 12:40 07/03/24 12:40 Laboratory Results - last 24 hr 07/03/24 08:45: WBC 18.8 H, RBC 4.86, Hgb 14.0, Hct 41.7, MCV 85.8, MCH 28.8, MCHC 33.6, RDW 14.5, Plt Count 159, MPV 12.1 H, Neut % (Auto) 85.7 H, Lymph % (Auto) 5.2 L, [place] % (Auto) 8.3, Eos % (Auto) 0.0 L, Baso % (Auto) 0.2, Neut # (Auto) 16.1 H, Lymph # (Auto) 1.0, [place] # (Auto) 1.6 H, Eos # (Auto) 0.0, Baso # (Auto) 0.0, Total Counted 100, Neutrophils % (Manual) 87 H, Lymphocytes % (Manual) 12, Monocytes % (Manual) 1 L, Platelet Estimate Normal, RBC Morphology Normal, D-Dimer 1.09 H, Sodium 133 L, Potassium 3.8, Chloride 104, Carbon Dioxide 22, Anion Gap 10.8, BUN 12, Creatinine 0.80, Estimated Creat Clear 68, Estimated GFR 74, Est GFR ( Amer) 90, Glucose 128 H, Lactate 1.6, Calcium 9.8, Total Bilirubin 1.6 H, AST 29, ALT 25, Alkaline Phosphatase 147 H, Troponin I < 0.01, Total Protein 8.2, Albumin 4.7, Globulin 3.5 H, Albumin/Globulin Ratio 1.3, Lipase 68 07/03/24 10:53: Urine Color Yellow, Urine Appearance Sl cloudy, Urine pH 6.0, Ur Specific [place] 1.020, Urine Protein 2+ A, Urine Glucose (UA) 2+, Urine Ketones 1+, Urine Blood 1+ A, Urine Nitrate Positive A, Urine Bilirubin Negative, Urine Urobilinogen 2.0, Ur Leukocyte Esterase Negative, Urine RBC None, Urine WBC 5-10, Ur Squamous Epith Cells 3-5, Urine Bacteria 3+ I & O for Last 24 hours: Intake & Output 06/30/24 07/01/24 07/02/24/08/25 23:59 23:59 23:59 23:59 Weight 117.027 kg
--- NOTE | 2024-07-03 16:08 | P.PNANES_ITS ---
[facility] Disclaimer: The information contained in this section may have been updated after the patient was seen, as this information can be updated by other users. Medical History (Updated 07/03/24 @ 15:15 by Cass Navarro RN) Sleep apnea Asthma History of gastroesophageal reflux (GERD) Hyperlipidemia Hypertension Surgical History (Updated 07/03/24 @ 15:15 by Cass Navarro RN) History of left knee surgery History of hysterectomy Family History (Updated 07/03/24 @ 15:15 by Cass Navarro RN) Mother Family history of hypertension Mother Family history of TIAs Social History (Updated 07/03/24 @ 15:15 by Cass Navarro RN) Smoking Status: Never smoker alcohol intake: never substance use type: denies use current occupational status: employed Travel in the last 8 weeks?: None [facility] Anesthesia Checklist Patient Identification Patient Identification: Arm Band and Verbal (Name & ) Structural Data Admitted From: Home Planned Operative Procedure/s: Laparoscopic cholecystectomy Consent for Planned Operative Procedure(s) Verified: Yes Verified Documents: Surgical Consent NPO Status Verified Time NPO: 00:00 Chart Verification Results Verified: CBC and BMP Additional verifications Anesthesia Reactions: No Hx Blood Transfusions: No Airway Assessment Mallampati Score:: Class III C-Spine Mobility Assessed: Yes TMJ Mobility Assessed: Yes Dentition: Good Dentition Neurological Assessment Level of Consciousness: Awake, Alert and Appropriate Hx Seizures: No Numbness or tingling in extremities: No Anesthesia Plan Anesthesia Risk discussed: Yes Anesthesia Plan: Verified ASA Class: III Anesthesia Type: General
[2024-07-03] MEDS: LIDOCAINE 1% 20ML MDV 20 ML (16:36)
--- NOTE | 2024-07-03 18:09 | PC.NURSE ---
PT CURRENTLY IN SURGERY TO REMOVE GALLBLADDER. FAMILY TO WAITING AREA. PT WAS ANXIOUS PRE PROCEDURE. COMPLAINED OF INTERMITTENT RUQ PAIN. NO NEEDS WERE VOICED BEFORE GOING TO SURGERY.
--- NOTE | 2024-07-03 19:03 | EXP.OP.NOTE ---
Date of procedure: 07/03/24 Pre-op Diagnosis:: Acute calculus cholecystitis Post-op Diagnosis:: Gangrenous acute calculus cholecystitis Procedure performed:: Laparoscopic cholecystectomy Surgeon:: Song Daniels MD Anesthesia: GETHenrietta Estimated blood loss (mL): 50 Operative findings:: Profound pericholecystic soft tissue stranding Severe gallbladder wall thickening Patchy necrosis throughout gallbladder Severe infundibular thickening Massive gallbladder distention Stone-filled gallbladder Operative note:: After informed consent was obtained, the patient was taken to the operating room and placed in the supine position. General anesthesia was induced and the abdomen was prepped and draped in a sterile fashion. After infiltration with local anesthetic an infraumbilical incision was made. A Veress needle was placed in position. The abdomen was insufflated. A 5 mm optical trocar was placed in position. Under direct visualization, a 12 mm trocar was placed in the subxiphoid position and 2 additional 5 mm trocars were placed in the right upper quadrant. The gallbladder was elevated up and over the liver margin. Secondary to above-stated findings dissection was exceptionally difficult. A combination of dome down approach and classic approach utilized. Profound inflammatory changes and soft tissue thickening throughout the infundibulum are noted. A combination of blunt dissection and dissection with the harmonic bentley was utilized to free the cystic duct from surrounding tissue. 3 clips were placed proximally and the duct was transected with harmonic bentley. Harmonic bentley were then utilized to dissect the gallbladder away from the liver margin. The gallbladder was placed in a retrieval bag and removed through the subxiphoid trocar site (extensively expanded sharply secondary to massive specimen). The right upper quadrant was thoroughly irrigated. No active bleeding or bile leak was noted. Fascia at the subxiphoid trocar site was reapproximated utilizing 0 Ethibond. The remaining trocars were removed. All wounds were irrigated and skin was closed with 4-0 Monocryl in an interrupted mattress fashion to facilitate hemostasis. Dressings were applied. The patient's anesthetic agents were reversed and extubation was completed prior to transfer to recovery in stable condition. Condition: stable Disposition: PACU Specimens:: Gallbladder and contents Complications:: No immediate
--- NOTE | 2024-07-03 19:16 | EXP.ANES.I ---
[facility] Anesthesia Record Part I Anesthesia Record I Intake, IV Amount: 1,200 Hydration: Adequate Estimated blood loss (mL): 0 Urine output (mL): 0 Blood Products used (#): none Blood Pressure: 142/51 SaO2: 94 Pulse Rate: 91 Airway Patency: Patent Respiratory Rate: 16 Temperature: 97.0 F Patient is:: Drowsy and Stable Stable to PACU at:: 19:12
[2024-07-03] MEDS: PIPERACILLIN/TAZO 4.5 GM in 0.9 % SODIUM CHLORIDE 100 ML IV (19:30)
--- NOTE | 2024-07-03 19:51 | SUR.PHASEI ---
1940- detailed report called to юлия on medsur floor. 1944- pt left in stable condition in room 202. VS being monitored and are stable at this time. Bed in lowest position and locked. Call light within reach. Family at bs
--- NOTE | 2024-07-03 19:53 | P.HP_ITS ---
<Statement entered by Santo Yoder MD - 07/05/24 12:59> I personally evaluated the patient and agree with the plan of care as outlined by the POWDER GUARD. History of Present Illness *Admission Date: 07/03/24 *Reason for visit:: Abdominal pain *History of present illness: This is a 58-year-old female who has a past medical history significant for obesity, hypertension anemia, hypertension and diabetes who presents to the emergency room with with a chief complaint of generalized abdominal pain. Due to patient's symptoms, she presented to the emergency room for evaluation. While in emergency room, CT scan of abdomen pelvis was consistent with acute cholecystitis. Patient was taken to the OR and is status post laparoscopic cholecystectomy by Dr. Marin. During my evaluation of the patient, patient states that her pain started in her right upper quadrant and progressively got worse. She did see her primary care physician for this pain and they suspected that she may have diverticulitis. Despite [id number] medications, patient is symptomology did not improve, so this prompted patient to present to the emergency room. Patient also reports having some cramping of her abdomen, constipation, positive flatus and decreased p.o. intolerance. Postoperatively, patient states her abdominal pain has improved. She states prior to her surgery, she had some chills but no fevers. She is currently denying any chest pain, lightheadedness, dizziness, fever, chills, rigors, nausea, vomiting, or diarrhea. Additional pertinent labs obtained including white blood cell count of 18.8, neutrophils 85.7%, D-dimer 1.09, sodium 133, blood glucose 128, total bilirubin 1.6, alkaline phosphate 147,And urinalysis revealed 2+ glucose/1+ ketones/1+ urine /Positive nitrates. [facility] Disclaimer: The information contained in this section may have been updated after the patient was seen, as this information can be updated by other users. Medical History (Updated 07/03/24 @ 20:04 by Vinay Gross APRN) Sleep apnea Asthma History of gastroesophageal reflux (GERD) Hyperlipidemia Hypertension Surgical History (Updated 07/03/24 @ 15:15 by Cass Navarro RN) History of left knee surgery History of hysterectomy Family History (Updated 07/03/24 @ 15:15 by Cass Navarro RN) Mother Family history of hypertension Mother Family history of TIAs Social History (Updated 07/03/24 @ 16:09 by Noel Perera CRNA) Smoking Status: Never smoker alcohol intake: never substance use type: denies use current occupational status: employed Travel in the last 8 weeks?: None Have you lived/traveled outside US in past 30 days?: No Contact w/someone who lives/traveled outside US past 30 days?: No Exposure to someone with infectious disease in past 14 days?: No Do you have a fever (greater than 100.4 F or 38 C)?: No Have you tested positive for COVID-19?: No Exposed to someone with COVID-19 in past 14 days?: No Do you have a sore throat?: No Do you have a cough?: No Do you have any weakness?: No Do you have any diarrhea?: No Are you experiencing any unusual bleeding?: No Do you have any muscle aches/pain?: No Do you have any abdominal pain?: Yes Are you experiencing loss of taste or smell?: No Other Medical History Have you received the Flu Vaccine for this season: No Have you received the Pneumonia Vaccine: No Review of Systems Review of Systems Review of systems:: pertinent systems reviewed and negative unless documented below Constitutional Constitutional: Reports poor appetite Eyes Eyes: Reports system reviewed and no additional complaints, except as documented ENT Ears, Nose, Mouth, and Throat: Reports system reviewed and no additional complaints, except as documented *Cardiovascular Cardiovascular: Reports system reviewed and no additional complaints, except as documented *Respiratory Respiratory: Reports system reviewed and no additional complaints, except as documented *Gastrointestinal Gastrointestinal: Reports abdominal pain, Reports constipation and Reports cramping *Genitourinary Genitourinary: Reports system reviewed and no additional complaints, except as documented *Musculoskeletal Musculoskeletal: Reports system reviewed and no additional complaints, except as documented Integumentary/Breasts Skin/Breast: Reports system reviewed and no additional complaints, except as documented *Neurologic Neurologic: Reports system reviewed and no additional complaints, except as documented Psychiatric Psychiatric: Reports system reviewed and no additional complaints, except as documented Endocrine Endocrine: Reports system reviewed and no additional complaints, except as documented Hematologic/Lymphatic Hematologic/Lymphatic: Reports system reviewed and no additional complaints, except as documented Allergic/Immunologic Allergic/Immunologic: Reports system reviewed and no additional complaints, except as documented Meds Home Medications and Allergies Home Medications ?Medication ?Instructions ?Recorded ?Confirmed ?Type aspirin 81 mg tablet,delayed 81 mg PO DAILY 03/09/23 07/03/24 History release (Adult Low Dose Aspirin) atorvastatin 40 mg tablet 40 mg PO DAILY 03/09/23 07/03/24 History cholecalciferol (vitamin D3) 25 25 mcg PO DAILY 03/09/23 07/03/24 History mcg (1,000 unit) capsule diclofenac sodium 75 mg 75 mg PO BID 03/09/23 07/03/24 History tablet,delayed release hydrocodone 7.5 mg-acetaminophen 1 tab PO NEEDED PRN pain 03/09/23 07/03/24 History 300 mg tablet metoprolol tartrate 25 mg tablet 25 mg PO BID 03/09/23 07/03/24 History ubidecarenone-omega 3-vit E 25 1 cap PO DAILY 03/09/23 07/03/24 History mg-150 (90-60) mg-200 unit capsule (Co L-74-Fqqciqq E-Fish Oil) albuterol sulfate 90 mcg/actuation 2 puff inhalation Q6H PRN 07/03/24 07/03/24 History aerosol inhaler (Ventolin HFA) Shortness Of Breath Or Wheezing esomeprazole magnesium 40 mg 40 mg PO DAILY 07/03/24 07/03/24 History capsule,delayed release New Prescriptions to Start Prescriptions: Allergies Allergy/AdvReac Type Severity Reaction Status Date / Time No Known Allergies Allergy Verified 07/03/24 15:16 Exam Data for Last 24 hours Vital signs and Labs for Last 24 Hours: Temp Pulse Resp BP Pulse Ox O2 Del Method 97.0 F L 83 16 125/74 95 Room Air 07/03/24 19:42 07/03/24 19:42 07/03/24 19:42 07/03/24 19:42 07/03/24 19:42 07/03/24 19:42 Laboratory Results - last 24 hr 07/03/24 08:45: WBC 18.8 H, RBC 4.86, Hgb 14.0, Hct 41.7, MCV 85.8, MCH 28.8, MCHC 33.6, RDW 14.5, Plt Count 159, MPV 12.1 H, Neut % (Auto) 85.7 H, Lymph % (Auto) 5.2 L, [place] % (Auto) 8.3, Eos % (Auto) 0.0 L, Baso % (Auto) 0.2, Neut # (Auto) 16.1 H, Lymph # (Auto) 1.0, [place] # (Auto) 1.6 H, Eos # (Auto) 0.0, Baso # (Auto) 0.0, Total Counted 100, Neutrophils % (Manual) 87 H, Lymphocytes % (Manual) 12, Monocytes % (Manual) 1 L, Platelet Estimate Normal, RBC Morphology Normal, D-Dimer 1.09 H, Sodium 133 L, Potassium 3.8, Chloride 104, Carbon Dioxide 22, Anion Gap 10.8, BUN 12, Creatinine 0.80, Estimated Creat Clear 68, Estimated GFR 74, Est GFR ( Amer) 90, Glucose 128 H, Lactate 1.6, Calcium 9.8, Total Bilirubin 1.6 H, AST 29, ALT 25, Alkaline Phosphatase 147 H, Troponin I < 0.01, Total Protein 8.2, Albumin 4.7, Globulin 3.5 H, Albumin/Globulin Ratio 1.3, Lipase 68 07/03/24 10:53: Urine Color Yellow, Urine Appearance Sl cloudy, Urine pH 6.0, Ur Specific [place] 1.020, Urine Protein 2+ A, Urine Glucose (UA) 2+, Urine Ketones 1+, Urine Blood 1+ A, Urine Nitrate Positive A, Urine Bilirubin Negative, Urine Urobilinogen 2.0, Ur Leukocyte Esterase Negative, Urine RBC None, Urine WBC 5- 10, Ur Squamous Epith Cells 3-5, Urine Bacteria 3+ I & O for Last 24 hours: Intake & Output 06/30/24 07/01/24 07/02/24 07/03/24 23:59 23:59 23:59 23:59 Intake Total 1200 / 1200 Balance 1200 / 1200 Weight 117.027 kg Constitutional Constitutional: no acute distress and obese *Routine HEENT Exam Head: Present normocephalic and atraumatic Eye: Present EOMI and PERRL ENT: Present mucous membranes moist *Routine Neck Exam Neck: Present supple, full ROM and trachea midline *Routine Respiratory Exam Respiratory: Present CTA bilaterally, able to speak in complete sentences and symmetric chest movement *Routine Cardiovascular Exam Cardiovascular: Present RRR, Normal S1 and Normal S2 *Routine Abdominal Exam Abdominal: Present obese *Routine Rectal Exam Rectal:: deferred *Routine Genitalia Exam Genitalia:: deferred *Routine Extremities Exam Extremities: Present full ROM, pulses intact and normal capillary refill Routine Back/Spine/Pelvis Exam Back/Spine: Present full ROM *Routine Skin Exam Skin: Present warm and normal turgor *Routine Neurological Exam Neurological: Present alert, oriented X3, CN II-XII intact, moving all extremities and normal speech Routine Psychiatric Exam Psychiatric: Present normal affect, normal thought process, cooperative, good insight and good judgment H&P: Result Impressions 58-year-old female presents with abdominal pain, p.o. intolerance, nausea is found to have an acute cholecystitis status post laparoscopic imtiaz cystectomy postop day 0 Assessment and Plan *Assessment and plan (1) Acute cholecystitis due to biliary calculus: Status: Acute Category: Medical Code(s): K80.00 - Calculus of gallbladder with acute cholecystitis without obstruction (2) Sepsis: Status: Acute Qualifiers: Sepsis type: sepsis due to unspecified organism Sepsis acute organ dysfunction status: unspecified Qualified Code(s): A41.9 - Sepsis, unspecified organism Category: Medical Code(s): A41.9 - Sepsis, unspecified organism (3) Leukocytosis: Status: Acute Qualifiers: Leukocytosis type: unspecified Qualified Code(s): D72.829 - Elevated white blood cell count, unspecified Category: Medical Code(s): D72.829 - Elevated white blood cell count, unspecified (4) Hyperglycemia due to diabetes mellitus: Status: Acute Category: Medical Code(s): E11.65 - Type 2 diabetes mellitus with hyperglycemia (5) Elevated liver enzymes: Status: Acute Category: Medical Code(s): R74.8 - Abnormal levels of other serum enzymes Plan Assessment: Acute cholecystitis - Patient is status post laparoscopic cholecystectomy postop day 0 -Patient is stable postoperatively - Surgeon has advance diet to clear liquid diet Sepsis - Patient is currently meeting sepsis criteria - She currently has a stable blood pressure and does not require 30 mL/kg of body weight of IV hydration - Blood cultures x 2 have been obtained - Will obtain venous lactic acid - Agree with 4.5 g of Zosyn IV every 6 hours - Patient did receive almost 2 L of IV hydration Leukocytosis - Will monitor blood cultures - Will monitor white blood cell count daily Hyperglycemia - Sliding scale insulin with mild scale coverage AC and at bedtime Elevated liver enzymes - Most likely in the setting of acute cholecystitis Plan: Admit patient to the MedSurg unit We appreciate any further recommendations from general surgery CBC/CMP daily Hemoglobin A1c Magnesium TSH 40 mg Lovenox subcu daily for DVT prophylax LR at 100 mL an hour 4 mg Zofran IV push. Hours. Nausea vomit Full code I have discussed this case with attending physician Dr. Yoder and I look forward to more input
--- NOTE | 2024-07-03 20:08 | EXP.SEPSISRE ---
[facility] Tissue Perfusion Eval Sepsis Re-Evaluation Performed: Yes Date Performed: 07/03/24 Time Performed: 20:08
[2024-07-03] MEDS: PANTOPRAZOLE 40MG TABLET 40 MG PO (21:25)
[2024-07-03] MEDS: ATORVASTATIN 40MG TABLET 40 MG PO (21:26)
[2024-07-03] MEDS: humaLOG 100 UNITS/ML 10ML VIAL (SSI) SUBCUT (21:26)
[2024-07-03] MEDS: METOPROLOL TARTRATE 25MG TABLET 25 MG PO (21:29)
[2024-07-04] MEDS: PIPERACILLIN/TAZO 4.5 GM in 0.9 % SODIUM CHLORIDE 100 ML IV ×3 (02:04→14:16)
[2024-07-04] MEDS: HYDROCODONE/APAP 5/325 MG TABLET 1 TAB PO ×3 (02:05→14:15)
[2024-07-04] MEDS: LACTATED RINGERS 1000ML 1,000 ML 100 ML IV (02:25)
[2024-07-04 04:00] VITALS: BP 97/54; PULSE 81; RESP 16; TEMP 36.8; O2SAT 91; BMI 43.6
--- NOTE | 2024-07-04 04:37 | PC.NURSE ---
Pt arrived to unit post op from PACU, v/s, ox4. family at bedside. RA satting in mid 90's. Pt tolerated IV ABX well. Pt's lap sites are clean, dry and intact, pink around sites. Pt c/o pain, treated per APR. Plan of care ongoing.
[2024-07-04 05:19] LABS: POC Glucose,Bedside 138 (70-110)
--- NOTE | 2024-07-04 07:39 | P.PNANES_ITS ---
[facility] Anesthesia Record Part II Anesthesia Record Part II Discharge Time: 19:42 Destination: Surgical Day Care (OP Surgery) PACU nurse assessment reviewed?: Yes Patient Condition:: Good Anesthesia Complications:: None Swallowing reflex intact?: Yes Airway Patency: Patent Cyanosis?: No Blood Pressure: 125/74 SaO2: 95 Respiratory Rate: 16 Pulse Rate: 83 Temperature: 97 F Mental Status: Alert & Oriented Pain level:: 0 Nausea and/or vomitting:: None Intake, IV Amount: 0 Hydration: Adequate
[2024-07-04 07:40] VITALS: BP 125/74; PULSE 83; RESP 16; TEMP 36.1; O2SAT 95
[2024-07-04 08:00] VITALS: BP 121/67; PULSE 97; RESP 18; TEMP 36.4; O2SAT 95
--- NOTE | 2024-07-04 08:19 | P.PN_ITS ---
Subjective Patient reports: feels better Exam Data for Last 24 hours Vital signs and Labs for Last 24 Hours: Temp Pulse Resp BP Pulse Ox O2 Del Method O2 Flow Rate 98.3 F 81 16 97/54 L 91 L Room Air 94 07/04/24 04:00 07/04/24 04:00 07/04/24 07:40 07/04/24 04:00 07/04/24 04:00 07/04/24 06:42 07/03/24 21:45 Laboratory Results - last 24 hr 07/03/24 08:45: WBC 18.8 H, RBC 4.86, Hgb 14.0, Hct 41.7, MCV 85.8, MCH 28.8, MCHC 33.6, RDW 14.5, Plt Count 159, MPV 12.1 H, Neut % (Auto) 85.7 H, Lymph % (Auto) 5.2 L, [place] % (Auto) 8.3, Eos % (Auto) 0.0 L, Baso % (Auto) 0.2, Neut # (Auto) 16.1 H, Lymph # (Auto) 1.0, [place] # (Auto) 1.6 H, Eos # (Auto) 0.0, Baso # (Auto) 0.0, Total Counted 100, Neutrophils % (Manual) 87 H, Lymphocytes % (Manual) 12, Monocytes % (Manual) 1 L, Platelet Estimate Normal, RBC Morphology Normal, D-Dimer 1.09 H, Sodium 133 L, Potassium 3.8, Chloride 104, Carbon Dioxide 22, Anion Gap 10.8, BUN 12, Creatinine 0.80, Estimated Creat Clear 68, Estimated GFR 74, Est GFR ( Amer) 90, Glucose 128 H, Lactate 1.6, Calcium 9.8, Total Bilirubin 1.6 H, AST 29, ALT 25, Alkaline Phosphatase 147 H, Troponin I < 0.01, Total Protein 8.2, Albumin 4.7, Globulin 3.5 H, Albumin/Globulin Ratio 1.3, Lipase 68 07/03/24 10:53: Urine Color Yellow, Urine Appearance Sl cloudy, Urine pH 6.0, Ur Specific [place] 1.020, Urine Protein 2+ A, Urine Glucose (UA) 2+, Urine Ketones 1+, Urine Blood 1+ A, Urine Nitrate Positive A, Urine Bilirubin Negative, Urine Urobilinogen 2.0, Ur Leukocyte Esterase Negative, Urine RBC None, Urine WBC 5- 10, Ur Squamous Epith Cells 3-5, Urine Bacteria 3+ 07/04/24 05:12: POC Glucose 138 H I & O for Last 24 hours: Intake & Output 07/01/24 07/02/24 07/03/24 07/04/24 11:59 11:59 11:59 11:59 Intake Total 1440 / 1440 Output Total 0 / 0 Balance 1440 / 1440 Weight 258 lb 255 lb 9.6 oz Constitutional Constitutional: no acute distress *Routine Respiratory Exam Respiratory: Absent respiratory distress *Routine Cardiovascular Exam Cardiovascular: Absent tachycardia *Routine Abdominal Exam Comments: Dressings in place. No spreading cellulitis. Progress Note: A&P Assessment and plan (1) Acute gangrenous cholecystitis: Status: Acute Assessment and plan: Overall, doing well status post laparoscopic cholecystectomy. Follow-up pending labs Increase ambulation Slowly increase diet
[2024-07-04] MEDS: ASPIRIN EC 81MG TABLET 81 MG PO (08:29)
[2024-07-04] MEDS: METOPROLOL TARTRATE 25MG TABLET 25 MG PO (08:29)
[2024-07-04] MEDS: CHOLECALCIFEROL 1,000 UNITS (25MCG) TABLET 25 MCG PO (08:29)
[2024-07-04] MEDS: ENOXAPARIN 40MG/0.4ML SYRINGE 40 MG SUBCUT (08:29)
[2024-07-04 09:08] LABS: Basophils % 0.1 % (0.1-2.0); Hematocrit 37.1 % (37.0-47.0); Hemoglobin 12.3 g/dL (12.2-16.2); Immature Granulocytes % 0.7 %; Lymphocytes # 0.6 K/mm3 (0.7-4.5); Lymphocytes % 4.1 % (10-50); Mean Corpuscular HGB Conc 33.2 g/dL (31.8-35.4); Mean Corpuscular Hemoglobin 28.8 pg (27.0-31.2); Mean Corpuscular Volume 86.9 fl (81-99); Mean Platelet Volume 11.9 fl (7.4-10.4); Monocytes % 7.2 % (1.7-9.3); Neutrophils # 12.3 K/mm3 (1.8-7.8); Neutrophils % 87.9 % (37.0-80.0); Nucleated Red Blood Cells # 0 10^3/uL; Nucleated Red Blood Cells % 0 %; Platelet Count 164 K/mm3 (142-424); Red Blood Count 4.27 M/mm3 (4.20-5.40); Red Cell Distribution Width 14.5 % (11.5-17.5); Red Cell Distribution Width-SD 46.5 fL
[2024-07-04 09:59] LABS: Albumin Level 3.7 g/dl (3.5-5.0); Chloride 105 mmol/L (98-107)
[2024-07-04 10:00] LABS: Potassium 3.9 mmoL/L (3.5-5.1); Sodium 135 mmol/L (136-145)
[2024-07-04 10:02] LABS: Alanine Aminotransferase 184 U/L (12-78); Albumin/Globulin Ratio 1.3 (1.1-1.8); Alkaline Phosphatase 149 U/L (38-126); Anion Gap 12.9 mEq/L (5-15); Aspartate Amino Transferase 201 U/L (14-36); Bilirubin,Total 1.3 mg/dl (0.2-1.3); Blood Urea Nitrogen 15 mg/dl (7-17); Carbon Dioxide 21 mmol/L (22.0-30.0); Creatinine Clearance Estimated 68 mL/min (50-200); Estimated Glomerular Filt Rate 74 ml/min (>60); GFR (African American) 90 ML/MIN (>60); Globulin 2.9 g/dL (1.3-3.2); Total Protein,Serum 6.6 g/dl (6.3-8.2)
[2024-07-04 10:03] LABS: Calcium 8.5 mg/dl (8.4-10.2); Glucose 151 mg/dl (74-100); Magnesium 1.8 mg/dl (1.6-2.3)
[2024-07-04 10:16] LABS: Hemoglobin A1C 5.5 % (4.0-6.0)
[2024-07-04 10:33] LABS: Thyroid Stimulating Hormone 0.89 uIU/mL (0.465-4.68)
[2024-07-04 12:00] VITALS: BP 101/57; PULSE 70; RESP 18; TEMP 36.5; O2SAT 100
[2024-07-04 12:36] LABS: POC Glucose,Bedside 154 (70-110)
[2024-07-04] MEDS: humaLOG 100 UNITS/ML 10ML VIAL (SSI) SUBCUT (12:39)
--- NOTE | 2024-07-04 14:55 | EXP.DC.SUM ---
General Admission date:: 07/03/24 HPI HPI HPI: This is a 58-year-old female who has a past medical history significant for obesity, hypertension anemia, hypertension and diabetes who presents to the emergency room with with a chief complaint of generalized abdominal pain. Due to patient's symptoms, she presented to the emergency room for evaluation. While in emergency room, CT scan of abdomen pelvis was consistent with acute cholecystitis. Patient was taken to the OR and is status post laparoscopic cholecystectomy by Dr. Marin. During my evaluation of the patient, patient states that her pain started in her right upper quadrant and progressively got worse. She did see her primary care physician for this pain and they suspected that she may have diverticulitis. Despite [id number] medications, patient is symptomology did not improve, so this prompted patient to present to the emergency room. Patient also reports having some cramping of her abdomen, constipation, positive flatus and decreased p.o. intolerance. Postoperatively, patient states her abdominal pain has improved. She states prior to her surgery, she had some chills but no fevers. She is currently denying any chest pain, lightheadedness, dizziness, fever, chills, rigors, nausea, vomiting, or diarrhea. Additional pertinent labs obtained including white blood cell count of 18.8, neutrophils 85.7%, D-dimer 1.09, sodium 133, blood glucose 128, total bilirubin 1.6, alkaline phosphate 147,And urinalysis revealed 2+ glucose/1+ ketones/1+ urine /Positive nitrates. Hospital Course Hospital Course Hospital Course: Jailyn Arredondo is a 58-year-old female who presented with abdominal pain and admitted for sepsis secondary to acute cholecystitis, UTI. #Sepsis #Cholecystitis #UTI ? General Surgery consulted, s/p laparoscopic cholecystectomy on 07/03/2024 showing necrotic gallbladder with severe wall thickening and gallstones. Patient tolerated procedure well. ? UA grossly abnormal, culture pending. ? Treated with IV Zosyn with improvement in sepsis. ? Tolerating diet without nausea/vomiting, ambulating independently. ? Discharged with Augmentin for 6 more days, [place] for pain control. Will follow-up with general surgery within 1 week. #GERD ? Continue home PPI. Total time spent on discharge: 32 minutes on chart review, counseling, documentation, and direct care with patient. Exam Data for Last 24 hours Vital signs and Labs for Last 24 Hours: Temp Pulse Resp BP Pulse Ox O2 Del Method O2 Flow Rate 97.7 F 70 18 101/57 L 100 Room Air 94 07/04/24 12:00 07/04/24 12:00 07/04/24 12:00 07/04/24 12:00 07/04/24 12:00 07/04/24 13:00 07/03/24 21:45 Laboratory Results - last 24 hr 07/04/24 05:12: POC Glucose 138 H 07/04/24 09:00: WBC 14.0 H D, RBC 4.27, Hgb 12.3, Hct 37.1, MCV 86.9, MCH 28.8, MCHC 33.2, RDW 14.5, Plt Count 164, MPV 11.9 H, Neut % (Auto) 87.9 H, Lymph % (Auto) 4.1 L, [place] % (Auto) 7.2, Eos % (Auto) 0.0 L, Baso % (Auto) 0.1, Neut # (Auto) 12.3 H, Lymph # (Auto) 0.6 L, [place] # (Auto) 1.0, Eos # (Auto) 0.0, Baso # (Auto) 0.0, Sodium 135 L, Potassium 3.9, Chloride 105, Carbon Dioxide 21 L, Anion Gap 12.9, BUN 15, Creatinine 0.80, Estimated Creat Clear 68, Estimated GFR 74, Est GFR ( Amer) 90, Glucose 151 H, Hemoglobin A1c 5.5, Calcium 8.5, Magnesium 1.8, Total Bilirubin 1.3, AST 201 H D, ALT 184 H D, Alkaline Phosphatase 149 H, Total Protein 6.6, Albumin 3.7 D, Globulin 2.9, Albumin/Globulin Ratio 1.3, TSH 0.89 07/04/24 12:24: POC Glucose 154 H I & O for Last 24 hours: Intake & Output 07/01/24 07/02/24 07/03/24 07/04/24 23:59 23:59 23:59 23:59 Intake Total 1200 / 1440 600 / 600 Output Total 0 / 0 0 / 0 Balance 1200 / 1440 600 / 600 Weight 117.027 kg 115.938 kg Microbiology Reports for the Last 24 Hours: Microbiology 07/03/24 09:33 Blood Blood Culture - Preliminary NO GROWTH AFTER 24 HOURS 07/03/24 09:33 Blood Blood Culture - Preliminary NO GROWTH AFTER 24 HOURS 07/03/24 10:58 Urine,Clean Catch Urine Culture - Preliminary Constitutional Constitutional: no acute distress *Routine Respiratory Exam Respiratory: Absent respiratory distress *Routine Cardiovascular Exam Cardiovascular: Absent tachycardia *Routine Abdominal Exam Comments: Dressings in place. No spreading cellulitis. Results Data Completed and Pending Labs on day of discharge: Labs from last 24 hours 07/04/24 07/04/24 07/04/24 12:24 09:00 05:12 WBC 14.0 H D RBC 4.27 Hgb 12.3 Hct 37.1 MCV 86.9 MCH 28.8 MCHC 33.2 RDW 14.5 Plt Count 164 MPV 11.9 H Neut % (Auto) 87.9 H Lymph % (Auto) 4.1 L [place] % (Auto) 7.2 Eos % (Auto) 0.0 L Baso % (Auto) 0.1 Neut # (Auto) 12.3 H Lymph # (Auto) 0.6 L [place] # (Auto) 1.0 Eos # (Auto) 0.0 Baso # (Auto) 0.0 Sodium 135 L Potassium 3.9 Chloride 105 Carbon Dioxide 21 L Anion Gap 12.9 BUN 15 Creatinine 0.80 Estimated Creat Clear 68 Estimated GFR 74 Est GFR ( Amer) 90 Glucose 151 H POC Glucose 154 H 138 H Hemoglobin A1c 5.5 Calcium 8.5 Magnesium 1.8 Total Bilirubin 1.3 AST 201 H D ALT 184 H D Alkaline Phosphatase 149 H Total Protein 6.6 Albumin 3.7 D Globulin 2.9 Albumin/Globulin Ratio 1.3 TSH 0.89 Preliminary micro results at discharge 07/03/24 09:33 Blood Culture - Preliminary Blood NO GROWTH AFTER 24 HOURS 07/03/24 09:33 Blood Culture - Preliminary Blood NO GROWTH AFTER 24 HOURS 07/03/24 10:58 Urine Culture - Preliminary Urine,Clean Catch DS: Diagnosis Discharge Diagnosis (1) Acute gangrenous cholecystitis: Status: Acute Code(s): K81.0 - Acute cholecystitis Meds Home Medications and Allergies Home Medications ?Medication ?Instructions ?Recorded ?Confirmed ?Type aspirin 81 mg tablet,delayed 81 mg PO DAILY 03/09/23 07/03/24 History release (Adult Low Dose Aspirin) atorvastatin 40 mg tablet 40 mg PO DAILY 03/09/23 07/03/24 History cholecalciferol (vitamin D3) 25 25 mcg PO DAILY 03/09/23 07/03/24 History mcg (1,000 unit) capsule metoprolol tartrate 25 mg tablet 25 mg PO BID 03/09/23 07/03/24 History ubidecarenone-omega 3-vit E 25 1 cap PO DAILY 03/09/23 07/03/24 History mg-150 (90-60) mg-200 unit capsule (Co E-54-Bkufmgg E-Fish Oil) albuterol sulfate 90 mcg/actuation 2 puff inhalation Q6H PRN 07/03/24 07/03/24 History aerosol inhaler (Ventolin HFA) Shortness Of Breath Or Wheezing esomeprazole magnesium 40 mg 40 mg PO DAILY 07/03/24 07/03/24 History capsule,delayed release amoxicillin 500 mg-potassium 1 tab PO TID 6 days #18 tabs 07/04/24 Rx clavulanate 125 mg tablet (Augmentin) diclofenac sodium 75 mg 75 mg PO BID PRN pain 30 days #0 07/04/24 07/03/24 Rx tablet,delayed release tabs hydrocodone 5 mg-acetaminophen 325 1 tab PO Q4HP PRN Moderate To 07/04/24 Rx mg tablet Severe Pain (4-10) 3 days #18 tabs New Prescriptions to Start Prescriptions: amoxicillin-pot clavulanate [Augmentin] Santo Yoder hydrocodone-acetaminophen Santo Yoder Allergies Allergy/AdvReac Type Severity Reaction Status Date / Time No Known Allergies Allergy Verified 07/03/24 15:16 Discharge Plan Disposition Patient Disposition: Home, Self-Care Condition: Fair Follow up Plan Follow up with: Song Daniels MD [Staff Physician] - 1 week Prescriptions/Medication Reconciliation: New amoxicillin-pot clavulanate [Augmentin] 500-125 mg tablet 1 tab PO TID 6 Days Qty: 18 0RF hydrocodone-acetaminophen 5-325 mg Tablet 1 tab PO Q4HP PRN (Reason: Moderate To Severe Pain (4-10)) 3 Days Qty: 18 0RF Continued metoprolol tartrate 25 mg tablet 25 mg PO BID Co I-30-Ykmwogm E-Fish Oil 25-150-200 mg-mg-unit capsule 1 cap PO DAILY cholecalciferol (vitamin D3) 25 mcg (1,000 unit) capsule 25 mcg PO DAILY aspirin [Adult Low Dose Aspirin] 81 mg tablet,delayed release (DR/EC) 81 mg PO DAILY esomeprazole magnesium 40 mg capsule,delayed release(DR/EC) 40 mg PO DAILY albuterol sulfate [Ventolin HFA] 90 mcg/actuation HFA aerosol inhaler 2 puff INHALATION Q6H PRN (Reason: Shortness Of Breath Or Wheezing) Patient Comments: INHALE 2 PUFFS BY MOUTH EVERY 6 HOURS NEEDED Changed diclofenac sodium 75 mg tablet,delayed release (DR/EC) 75 mg PO BID PRN (Reason: pain) 30 Days Qty: 0 0RF Held atorvastatin 40 mg tablet 40 mg PO DAILY Hold Instructions: Resume on 07/11/24. Patient Comments: TAKE 1 TABLET BY MOUTH ONCE DAILY Discontinued hydrocodone-acetaminophen 7.5-300 mg tablet 1 tab PO NEEDED PRN (Reason: pain) Problem Reconciliation Problems Reviewed?: Yes Patient Discharge Instructions ACTIVITY: Ambulate as tolerated and No heavy lifting DIET: advance to your usual diet Print Language: Slovenian Providers Primary Care Provider: Kun Dempsey Admit Provider: Santo Yoder Attending Provider: Santo Yoder
--- NOTE | 2024-07-07 10:40 | SW/DCPLANNER ---
Spoke with patient on the phone. Patient stated that she is doing well. Patient stated that she is aware of her upcoming appointment. Patient stated that she was able to get her medicine picked up from clinic pharmacy. Patient stated that she called Dr Daniels's office because he was wanting a one week follow up appointment and she seen where they had it scheduled for 2 weeks and she left a message. Patient stated that she has no concerns or questions at this time. Garcia Rader
[2024-07-08 15:29] LABS: POC Glucose,Bedside 162 (70-110)
== END 2024-07-04 16:30 | disposition home or self-care (01) ==
LOC: ER 11:01 → 2ND 11:49
PROVIDERS: Nurse Practitioner Family; Surgery; Admitting Provider Student in an Organized Health Care Education/Training Program; Emergency Provider Emergency Medicine; PCP Internal Medicine Adolescent Medicine; Visit Provider Student in an Organized Health Care Education/Training Program
PROC: 0FT44ZZ Resection of Gallbladder, Percutaneous Endoscopic Approach (ICD-10-PCS; CPT 47562; principal; 2024-07-03 15:00)
DX: K80.00 Calculus of gallbladder with acute cholecystitis without obstruction (principal); K82.A1 Gangrene of gallbladder in cholecystitis; I10 Essential (primary) hypertension; D64.9 Anemia, unspecified; Z68.41 Body mass index [BMI] 40.0-44.9, adult; E66.9 Obesity, unspecified; N39.0 Urinary tract infection, site not specified; E11.65 Type 2 diabetes mellitus with hyperglycemia; Z79.51 Long term (current) use of inhaled steroids; Z79.82 Long term (current) use of aspirin; A41.9 Sepsis, unspecified organism
CPT/HCPCS: 47562; 36415; 71275; 74177; 80053; 81001; 82962; 83036; 83605; 83690; 83735; 84443; 84484; 85007; 85025; 85378; 87040; 87086; 87088; 87186; 93005; 99291; J3490; G0378; J1100; J1171; J1650; J1885; J2250; J2405; J2543; J3010; J7120; Q9967